=== PATIENT | male | born 1960 | race Caucasian/White ===

== ENCOUNTER 2023-09-21 14:55 | Inpatient (IN) | payer BC, OTHER ==
--- NOTE | 2023-09-21 15:31 | ED ---
General Adult HPI - General Chief complaint: Chest Pain Stated complaint: chest pain Time Seen by Provider: 09/21/23 15:07 Source: patient, EMS, RN notes reviewed, old records reviewed Mode of arrival: EMS Limitations: no limitations - History of Present Illness Initial comments: 63-year-old male with history of CAD presents for evaluation of central chest pain. Patient states he has been dealing with indigestion and reflux for the past several weeks. This has been treated with [id number] medication. He states that the day the pain was significantly worse although similar in character. No radiation. No associated vomiting or diaphoresis. Patient states his previous PA was approximately 12 years ago. - Related Data Home Medications Medication Instructions Recorded Confirmed Atorvastatin Calcium [Lipitor] 40 mg PO DAILY 03/25/14 04/10/14 Losartan/Hydrochlorothiazide 1 each PO DAILY 03/25/14 04/10/14 [Hyzaar 100-25 Tablet] Prevacid(Dose Unknown) 1 tab PO DAILY 03/25/14 04/10/14 Aspirin 325 mg PO DAILY 03/26/14 04/10/14 Previous Rx's Medication Instructions Recorded Hydrocodone/Acetaminophen [[place] 1 each PO Q6H PRN #20 tab 04/10/14 10-325] Allergies Allergy/AdvReac Type Severity Reaction Status Date / Time No Known Allergies Allergy Verified 04/10/14 18:14 Review of Systems ROS Statement: Those systems with pertinent positive or pertinent negative responses have been documented in the HPI. ROS Other: All systems not noted in ROS Statement are negative. Past Medical History Past Medical History: GERD/Reflux, Hyperlipidemia, Hypertension, Myocardial Infarction ([place]) Last Myocardial Infarction Date:: 2011 History of Any Multi-Drug Resistant Organisms: None Reported Past Surgical History: Heart Catheterization With Stent, Orthopedic Surgery Additional Past Surgical History / Comment(s): oral surgery, arthroscopic rt knee Past Anesthesia/Blood Transfusion Reactions: No Reported Reaction Date of Last Stent Placement:: 2011 Past Psychological History: No Psychological Hx Reported Smoking Status: Current every day smoker Past Alcohol Use History: Occasional Past Drug Use History: None Reported - Past Family History Sister(s) Family Medical History: Cancer General Exam Limitations: no limitations General appearance: alert, in no apparent distress Head exam: Present: atraumatic, normocephalic Eye exam: Present: normal appearance, PERRL ENT exam: Present: normal exam Neck exam: Present: normal inspection. Absent: tenderness, meningismus Respiratory exam: Present: normal lung sounds bilaterally. Absent: respiratory distress, wheezes Cardiovascular Exam: Present: regular rate, normal rhythm GI/Abdominal exam: Present: soft. Absent: distended, tenderness, guarding Extremities exam: Present: normal inspection, normal capillary refill Neurological exam: Present: alert, oriented X3 Psychiatric exam: Present: normal affect, normal mood Skin exam: Present: warm, dry, intact. Absent: cyanosis, diaphoretic Course Vital Signs 09/21/23 15:14 Temperature 97.8 F Pulse Rate 73 Respiratory 20 Rate Blood Pressure 143/94 O2 Sat by Pulse 100 Oximetry Medical Decision Making - Medical Decision Making Was pt. sent in by a medical professional or institution (, PA, ROAD MACHINERY INSPECTOR, urgent care, hospital, or snf...) When possible be specific @ -[No] Did you speak to anyone other than the patient for history (EMS, parent, family, police, friend...)? What history was obtained from this source @ -[No] Did you review nursing and triage notes (agree or disagree)? Why? @ -[I reviewed and agree with nursing and triage notes] Were old charts reviewed (outside hosp., previous admission, EMS record, old EKG, old radiological studies, urgent care reports/EKG's, snf records)? Report findings @ -[No old charts were reviewed] Differential Diagnosis (chest pain, altered mental status, abdominal pain women, abdominal pain men, vaginal bleeding, weakness, fever, dyspnea, syncope, headache, dizziness, GI bleed, back pain, seizure, CVA, palpatations, mental health, musculoskeletal)? @ -Differential Chest Pain: Stable Angina, Unstable Angina, STEMI, NSTEMI Aortic Dissection, Pneumothorax, Musculoskeletal, Esophageal Spasm GERD, Cholecystitis, Pancreatitis, Zoster, this is not meant to be an all-inclusive list. EKG interpreted by me (3pts min.). @ -Sinus rhythm, rate of 72, MI interval 184, QRS duration 113, QTc 422, diffuse ST segment elevation across the inferior and precordial leads. No ST segment elevation. No old for comparison. X-rays interpreted by me (1pt min.). @ -[Chest x-ray negative for acute cardiopulmonary findings CT interpreted by me (1pt min.). @ -[None done] U/S interpreted by me (1pt. min.). @ -[None done] What testing was considered but not performed or refused? (CT, X-rays, U/S, labs)? Why? @ -[None] What meds were considered but not given or refused? Why? @ -[None] Did you discuss the management of the patient with other professionals (professionals i.e. Dr., PA, ROAD MACHINERY INSPECTOR, lab, RT, psych nurse, social security specialist, peoplesoft administrator, teacher, security police officer, skilled nursing case manager)? Give summary @ -[Patient discussed with Dr. Garvin who will admit and Dr. Hopkins covering for cardiology, Dr. Hopkins does recommend posterior EKG, this will be obtained and followed by Dr. Garvin. Was smoking cessation discussed for >3mins.? @ -[No] Was critical care preformed (if so, how long)? @ -[No] Were there social determinants of health that impacted care today? How? (Homelessness, low income, unemployed, alcoholism, drug addiction, transportation, low edu. Level, literacy, decrease access to med. care, long term, rehab)? @ -[No] Was there de-escalation of care discussed even if they declined (Discuss DNR or withdrawal of care, Hospice)? DNR status @ -[No] What co-morbidities impacted this encounter? (DM, HTN, Smoking, COPD, CAD, Cancer, CVA, ARF, Chemo, Hep., AIDS, mental health diagnosis, sleep apnea, morbid obesity)? @ -Coronary artery disease Was patient admitted / discharged? Hospital course, mention meds given and route, prescriptions, significant lab abnormalities, going to OR and other pertinent info. @63-year-old male history of coronary artery disease presenting with atypical chest pain without typical features. EKG is ischemic appearing with ST segment depression inferiorly and laterally. No ST segment elevation. No old EKG for comparison. Workup is initiated, normal CBC, CMP does show a hypokalemia of 2.7 which is replaced. Initial troponin is negative. Serial cardiac enzymes will be obtained. Posterior EKG pending at this time. Patient admitted to internal medicine with cardiology on consult. Undiagnosed new problem with uncertain prognosis? @ -[No] Drug Therapy requiring intensive monitoring for toxicity (Heparin, Nitro, Insulin, Cardizem)? @ -[No] Were any procedures done? @ -[No] Diagnosis/symptom? @ -Chest pain rule out Acute, or Chronic, or Acute on Chronic? @ -Acute Uncomplicated (without systemic symptoms) or Complicated (systemic symptoms)? @ -[default] Side effects of treatment? @ -[No] Exacerbation, Progression, or Severe Exacerbation? @ -[No] Poses a threat to life or bodily function? How? (Chest pain, [place], PA, pneumonia, PE, COPD, DKA, ARF, appy, cholecystitis, CVA, Diverticulitis, Homicidal, Suicidal, threat to staff... and all critical care pts) @ -Yes, ACS - Lab Data Result diagrams: 09/21/23 15:30 09/21/23 15:30 Lab Results 09/21/23 09/21/23 09/21/23 Range/Units 15:30 15:30 15:30 WBC 12.0 H (3.8-10.6) k/uL RBC 5.71 (4.30-5.90) m/uL Hgb 15.9 (13.0-17.5) gm/dL Hct 46.1 (39.0-53.0) % MCV 80.7 (80.0-100.0) fL MCH 27.9 (25.0-35.0) pg MCHC 34.5 (31.0-37.0) g/dL RDW 12.7 (11.5-15.5) % Plt Count 244 (150-450) k/uL MPV 9.1 Neutrophils % 72 % Lymphocytes % 19 % Monocytes % 5 % Eosinophils % 2 % Basophils % 1 % Neutrophils # 8.7 H (1.3-7.7) k/uL Lymphocytes # 2.2 (1.0-4.8) k/uL Monocytes # 0.6 (0-1.0) k/uL Eosinophils # 0.2 (0-0.7) k/uL Basophils # 0.1 (0-0.2) k/uL PT 11.0 (10.0-12.5) sec INR 1.0 (<1.2) APTT 24.3 (22.0-30.0) sec Sodium 138 (137-145) mmol/L Potassium 2.7 L* (3.5-5.1) mmol/L Chloride 99 (98-107) mmol/L Carbon Dioxide 29 (22-30) mmol/L Anion Gap 10 mmol/L BUN 14 (9-20) mg/dL Creatinine 0.82 (0.66-1.25) mg/dL Est GFR (CKD-EPI)AfAm >90 (>60 ml/min/1.73 sqM) Est GFR (CKD-EPI)NonAf >90 (>60 ml/min/1.73 sqM) Glucose 123 H (74-99) mg/dL Calcium 9.7 (8.4-10.2) mg/dL Magnesium 1.8 (1.6-2.3) mg/dL Total Bilirubin 1.0 (0.2-1.3) mg/dL AST 46 (17-59) U/L ALT 45 (4-49) U/L Alkaline Phosphatase 95 (38-126) U/L Troponin I (0.000-0.034) ng/mL Total Protein 7.4 (6.3-8.2) g/dL Albumin 4.4 (3.5-5.0) g/dL Lipase 119 (23-300) U/L 09/21/23 Range/Units 15:30 WBC (3.8-10.6) k/uL RBC (4.30-5.90) m/uL Hgb (13.0-17.5) gm/dL Hct (39.0-53.0) % MCV (80.0-100.0) fL MCH (25.0-35.0) pg MCHC (31.0-37.0) g/dL RDW (11.5-15.5) % Plt Count (150-450) k/uL MPV Neutrophils % % Lymphocytes % % Monocytes % % Eosinophils % % Basophils % % Neutrophils # (1.3-7.7) k/uL Lymphocytes # (1.0-4.8) k/uL Monocytes # (0-1.0) k/uL Eosinophils # (0-0.7) k/uL Basophils # (0-0.2) k/uL PT (10.0-12.5) sec INR (<1.2) APTT (22.0-30.0) sec Sodium (137-145) mmol/L Potassium (3.5-5.1) mmol/L Chloride (98-107) mmol/L Carbon Dioxide (22-30) mmol/L Anion Gap mmol/L BUN (9-20) mg/dL Creatinine (0.66-1.25) mg/dL Est GFR (CKD-EPI)AfAm (>60 ml/min/1.73 sqM) Est GFR (CKD-EPI)NonAf (>60 ml/min/1.73 sqM) Glucose (74-99) mg/dL Calcium (8.4-10.2) mg/dL Magnesium (1.6-2.3) mg/dL Total Bilirubin (0.2-1.3) mg/dL AST (17-59) U/L ALT (4-49) U/L Alkaline Phosphatase (38-126) U/L Troponin I 0.013 (0.000-0.034) ng/mL Total Protein (6.3-8.2) g/dL Albumin (3.5-5.0) g/dL Lipase (23-300) U/L Disposition Clinical Impression: Chest pain, Hypokalemia Disposition: ADMITTED IP TO THIS HOSP Condition: Stable Is patient prescribed a controlled substance at d/c from ED?: No Referrals: Gifty Nelson DO [Primary Care Provider] - 1-2 days Time of Disposition: 17:10
[2023-09-21 15:40] LABS: Basophils # (A) 0.1 k/uL (0-0.2); Basophils % (A) 1 %; Eosinophils # (A) 0.2 k/uL (0-0.7); Eosinophils % (A) 2 %; HCT 46.1 % (39.0-53.0); HGB 15.9 gm/dL (13.0-17.5); Lymphocytes # (A) 2.2 k/uL (1.0-4.8); Lymphocytes % (A) 19 %; MCH 27.9 pg (25.0-35.0); MCHC 34.5 g/dL (31.0-37.0); MCV 80.7 fL (80.0-100.0); Mean Platelet Volume 9.1; Monocytes # (A) 0.6 k/uL (0-1.0); Monocytes % (A) 5 %; Neutrophils # (A) 8.7 k/uL (1.3-7.7); Neutrophils % (A) 72 %; Platelet Count 244 k/uL (150-450); RBC 5.71 m/uL (4.30-5.90); RDW 12.7 % (11.5-15.5)
[2023-09-21 15:50] LABS: Partial Thromboplastin Time 24.3 sec (22.0-30.0)
[2023-09-21] MEDS: PANTOPRAZOLE 40 MG/10 ML VIAL IVP STA (15:55)
[2023-09-21] MEDS: ASPIRIN 325 MG TAB PO STA (15:55)
--- NOTE | 2023-09-21 16:11 | XR ---
EXAMINATION TYPE: XR chest 1V portable DATE OF EXAM: 09/21/2023 COMPARISON: NONE HISTORY: Chest pain TECHNIQUE: Single frontal view of the chest is obtained. FINDINGS: There is no focal air space opacity, pleural effusion, or pneumothorax seen. The cardiac silhouette size is within normal limits. The osseous structures are intact. Elevated left hemidiaph ragm. Mild hyperexpansion consider COPD. Portions of the upper lobe medial segments are obscured by p ositioning. IMPRESSION: No acute process.
[2023-09-21 16:30] LABS: ALT 45 U/L (4-49); AST 46 U/L (17-59); African American GFR (CKD) >90 (>60 ml/min/1.73 sqM); Albumin 4.4 g/dL (3.5-5.0); Alkaline Phosphatase 95 U/L (38-126); Anion Gap 10 mmol/L; Blood Urea Nitrogen 14 mg/dL (9-20); Calcium 9.7 mg/dL (8.4-10.2); Carbon Dioxide 29 mmol/L (22-30); Chloride 99 mmol/L (98-107); Glucose 123 mg/dL (74-99); Lipase 119 U/L (23-300); Magnesium 1.8 mg/dL (1.6-2.3); Non-African American GFR(CKD) >90 (>60 ml/min/1.73 sqM); Sodium 138 mmol/L (137-145); Total Protein 7.4 g/dL (6.3-8.2)
[2023-09-21 16:33] LABS: Potassium 2.7 mmol/L (3.5-5.1)
[2023-09-21] MEDS ORDERED: NALOXONE 0.4 MG/ML 1 ML VIAL IV PRN (16:56)
[2023-09-21] MEDS: POTASSIUM CHLORIDE ER 20 MEQ TAB.ER PO STA (17:17)
[2023-09-21] MEDS: POTASSIUM CHLORIDE 10 MEQ in WATER FOR INJECTION 1 100ML.BAG IVPB SCH (17:24)
[2023-09-21] MEDS: MORPHINE SULFATE 4 MG/ML SYRINGE IV PRN (17:53)
[2023-09-21] MEDS ORDERED: NITROGLYCERIN SL TABS 0.4 MG TAB SUBLINGUAL PRN (18:11)
[2023-09-21] MEDS ORDERED: NALOXONE 0.4 MG/ML 1 ML VIAL IVP PRN (18:11)
--- NOTE | 2023-09-21 18:20 | P.HPIM ---
History of Present Illness H&P Date: 09/21/23 Chief Complaint: chest pain 63-year-old man with a medical history of CAD status post multiple drug-eluting stents back in 2011, hypertension, active smoker, presented for evaluation of burning chest pain. Patient says that the pain is burning in nature and has been present for months, but has been gradually worsening over the course of the last several weeks. He has seen his primary care physician for this and has been prescribed Prevacid, which did not seem to improve his symptoms. He had scheduled to see a GI physician for EGD on Saturday of next week, however, noted that his symptoms got to the point where he became concerned there may be an issue with his heart given his history and presented to the emergency room for further evaluation. Patient also relates to me that he had an episode of the flu 3 weeks prior, however, his symptoms of burning chest pain had started before this. He relates to me that his pain does improve when he leans forward or sits up, and is worse when he lies down onto his back, takes his medication, drinks water. He denies fevers, chills, nausea, vomiting, diaphoresis, palpitations, syncope, presyncope, abdominal pain, constipation, diarrhea. In the emergency room, patient was afebrile, 143/94, heart rate 73, 100% on room air. CBC demonstrated mild leukocytosis 12. Basic metabolic panel showed potassium of 2.7. Liver function tests are unremarkable. Lipase was 119. Troponins 0.013 then trended 0.032 after repeat check. Coags are unremarkable. Patient had multiple EKGs, personally interpreted, normal sinus rhythm, normal axis, ST depressions in leads II, 3, aVF, V3 through V6, ST elevation in aVR. Patient subsequently underwent posterior EKG which did not demonstrate findings of ST elevation. Chest x-ray, personally interpreted, showed clear parenchyma bilaterally, normal-sized heart. All Systems reviewed and pertinent positives and negatives noted in HPI, all other symptoms are negative Gen: in no apparent distress, resting comfortably in bed Eyes: PERRL, no scleral injection or icterus HENT: normocephalic, atraumatic, good hearing acuity, moist mucous membranes Neck: no tracheal deviation, full range of motion Resp: good air exchange, breathing comfortably with no accessory muscle use, no tactile fremitus, clear to auscultation bilaterally CVS: good distal perfusion x 4, no pitting edema, systolic ejection murmur heard best over the aortic space, no pericardial friction rub GI: soft, NTTP, ND, no hepatosplenomegaly : no suprapubic tenderness, no CVAT, west catheter not present MSK: no clubbing, no cyanosis, no noted contractures of extremities Skin: no noted rashes, petechiae; temperature of skin is appropriate Neuro: moving all extremities without signs of weakness, CN II-XII intact Psych: cooperative, euthymic mood, insight and judgment intact Labs and imaging as above Assessment/plan: Chest pain, atypical Hypertension CAD -Patient is high risk given his history, admit to observation with telemetry -Cardiology was consulted -EKGs reviewed and personally interpreted, see reading above -Chest x-ray was reviewed and personally interpreted, see reading above -Aspirin, statin -TSH, lipid panel, A1c -GI cocktail, Pepcid twice daily, Tums every 4 as needed -N.p.o. at midnight -Trend troponins Active smoker -Nicotine patch Patient is full code Past Medical History Past Medical History: GERD/Reflux, Hyperlipidemia, Hypertension, Myocardial Infarction ([place]) Last Myocardial Infarction Date:: 2011 History of Any Multi-Drug Resistant Organisms: None Reported Past Surgical History: Heart Catheterization With Stent, Orthopedic Surgery Additional Past Surgical History / Comment(s): oral surgery, arthroscopic rt knee Past Anesthesia/Blood Transfusion Reactions: No Reported Reaction Date of Last Stent Placement:: 2011 Past Psychological History: No Psychological Hx Reported Smoking Status: Current every day smoker Past Alcohol Use History: Occasional Past Drug Use History: None Reported - Past Family History Sister(s) Family Medical History: Cancer Medications and Allergies Home Medications Medication Instructions Recorded Confirmed Type Atorvastatin Calcium [Lipitor] 40 mg PO DAILY 03/25/14 04/10/14 History Losartan/Hydrochlorothiazide 1 each PO DAILY 03/25/14 04/10/14 History [Hyzaar 100-25 Tablet] Prevacid(Dose Unknown) 1 tab PO DAILY 03/25/14 04/10/14 History Aspirin 325 mg PO DAILY 03/26/14 04/10/14 History Hydrocodone/Acetaminophen [[place] 1 each PO Q6H PRN #20 tab 04/10/14 Rx 10-325] Allergies Allergy/AdvReac Type Severity Reaction Status Date / Time No Known Allergies Allergy Verified 04/10/14 18:14 Physical Exam Osteopathic Statement: *. No significant issues noted on an osteopathic structural exam other than those noted in the History and Physical/Consult. Vitals: Vital Signs Temp Pulse Resp BP Pulse Ox 09/21/23 17:40 70 18 147/91 98 09/21/23 15:14 97.8 F 73 20 143/94 100 Intake and Output 09/21/23 09/21/23 09/21/23 06:59 14:59 22:59 Other: Weight 102.058 kg Results CBC & Chem 7: 09/21/23 15:30 09/21/23 15:30 Labs: Abnormal Lab Results - Last 24 Hours (Table) 09/21/23 09/21/23 Range/Units 15:30 15:30 WBC 12.0 H (3.8-10.6) k/uL Neutrophils # 8.7 H (1.3-7.7) k/uL Potassium 2.7 L* (3.5-5.1) mmol/L Glucose 123 H (74-99) mg/dL
[2023-09-21] MEDS: MAG HYDROX/AL HYDROX/SIMETH 30 ML, HYOSCYAMINE ELIXIR 10 ML PO ONE (18:33)
[2023-09-21] MEDS: FAMOTIDINE 20 MG TAB PO SCH (21:13)
[2023-09-21 21:14] LABS: African American GFR (CKD) >90 (>60 ml/min/1.73 sqM); Anion Gap 7 mmol/L; Blood Urea Nitrogen 13 mg/dL (9-20); Calcium 9.2 mg/dL (8.4-10.2); Carbon Dioxide 32 mmol/L (22-30); Chloride 99 mmol/L (98-107); Glucose 111 mg/dL (74-99); Non-African American GFR(CKD) >90 (>60 ml/min/1.73 sqM); Sodium 138 mmol/L (137-145)
[2023-09-21] MEDS: NICOTINE 14MG/24HR PATCH TRANSDERM SCH ×2 (21:14→22:35)
[2023-09-21 21:24] LABS: Potassium 2.7 mmol/L (3.5-5.1)
[2023-09-21] MEDS: CALCIUM CARBONATE 500 MG CHEWABLE PO PRN (22:25)
[2023-09-21] MEDS: amLODIPine 10 MG TAB PO SCH (22:56)
[2023-09-22] MEDS: ATORVASTATIN 80 MG TAB PO SCH (07:39)
[2023-09-22] MEDS: ASPIRIN 81 MG PO SCH (07:39)
[2023-09-22 08:23] LABS: Basophils # (A) 0.1 k/uL (0-0.2); Basophils % (A) 1 %; Eosinophils # (A) 0.2 k/uL (0-0.7); Eosinophils % (A) 2 %; HCT 44.9 % (39.0-53.0); HGB 15.2 gm/dL (13.0-17.5); Lymphocytes # (A) 2.7 k/uL (1.0-4.8); Lymphocytes % (A) 25 %; MCH 27.8 pg (25.0-35.0); MCHC 33.9 g/dL (31.0-37.0); Mean Platelet Volume 11.6; Monocytes # (A) 0.9 k/uL (0-1.0); Monocytes % (A) 9 %; Neutrophils # (A) 6.5 k/uL (1.3-7.7); Neutrophils % (A) 61 %; Platelet Count 169 k/uL (150-450); RBC 5.47 m/uL (4.30-5.90); RDW 13.2 % (11.5-15.5); WBC 10.5 k/uL (3.8-10.6)
[2023-09-22 08:30] LABS: African American GFR (CKD) >90 (>60 ml/min/1.73 sqM); Anion Gap 9 mmol/L; Blood Urea Nitrogen 12 mg/dL (9-20); Calcium 9.4 mg/dL (8.4-10.2); Carbon Dioxide 28 mmol/L (22-30); Chloride 103 mmol/L (98-107); Glucose 102 mg/dL (74-99); Magnesium 1.8 mg/dL (1.6-2.3); Non-African American GFR(CKD) >90 (>60 ml/min/1.73 sqM); Potassium 2.8 mmol/L (3.5-5.1); Sodium 140 mmol/L (137-145)
[2023-09-22] MEDS: POTASSIUM CHLORIDE ER 20 MEQ TAB.ER PO SCH (08:56)
[2023-09-22] MEDS: ONDANSETRON 4 MG/2 ML VIAL IVP PRN (09:51)
[2023-09-22 10:22] LABS: Large Platelets Present; RBC Morphology Normal
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
[2023-09-22] MEDS: SPIRONOLACTONE 25 MG TAB PO SCH (12:07)
[2023-09-22 12:18] VITALS: RESP 16
[2023-09-22 13:15] LABS: Chol/HDL Ratio 3.91 Ratio; LDL Cholesterol,Calculated 34.1 mg/dL (0.0-131.0)
--- NOTE | 2023-09-22 14:24 | P.PN ---
Subjective Progress Note Date: 09/22/23 No new complaints today. GI cocktail did help his pain. Trops negative. Gen: in no apparent distress, resting comfortably in bed Eyes: PERRL, no scleral injection or icterus HENT: normocephalic, atraumatic, good hearing acuity, moist mucous membranes Neck: no tracheal deviation, full range of motion Resp: good air exchange, breathing comfortably with no accessory muscle use, no tactile fremitus, clear to auscultation bilaterally CVS: good distal perfusion x 4, no pitting edema, systolic ejection murmur heard best over the aortic space, no pericardial friction rub GI: soft, NTTP, ND, no hepatosplenomegaly : no suprapubic tenderness, no CVAT, west catheter not present MSK: no clubbing, no cyanosis, no noted contractures of extremities Skin: no noted rashes, petechiae; temperature of skin is appropriate Neuro: moving all extremities without signs of weakness, CN II-XII intact Psych: cooperative, euthymic mood, insight and judgment intact Hospital Course: 63-year-old man with a medical history of CAD status post multiple drug-eluting stents back in 2011, hypertension, active smoker, presented for evaluation of burning chest pain. In the emergency room, patient was afebrile, 143/94, heart rate 73, 100% on room air. CBC demonstrated mild leukocytosis 12. Basic metabolic panel showed potassium of 2.7. Liver function tests are unremarkable. Lipase was 119. Troponins 0.013 then trended 0.032 after repeat check. Coags are unremarkable. Patient had multiple EKGs, personally interpreted, normal sinus rhythm, normal axis, ST depressions in leads II, 3, aVF, V3 through V6, ST elevation in aVR. Patient subsequently underwent posterior EKG which did not demonstrate findings of ST elevation. Chest x-ray, personally interpreted, showed clear parenchyma bilaterally, normal-sized heart. Assessment/plan: Chest pain, atypical Hypertension CAD -Patient is high risk given his history, admit to observation with telemetry -Cardiology was consulted -EKGs reviewed and personally interpreted, see reading above -Chest x-ray was reviewed and personally interpreted, see reading above -Aspirin, statin -TSH, lipid panel, A1c -GI cocktail, Pepcid twice daily, Tums every 4 as needed -N.p.o. at midnight tonight for stress test tomorrow per cardiology -Trend troponins Echo ordered Hypokalemia -replete -repeat BMP Active smoker -Nicotine patch Patient is full code Objective - Vital Signs Vital signs: Vital Signs Temp 97.8 F 09/22/23 08:00 Pulse 71 09/22/23 11:53 Resp 16 09/22/23 11:53 BP 151/88 09/22/23 11:53 Pulse Ox 98 09/22/23 11:53 FiO2 Intake & Output 09/21/23 09/22/23 09/22/23 18:59 06:59 18:59 Intake Total 780 Balance 780 Weight 102.058 kg 102.058 kg Intake: Oral 780 Other: Voiding Method Toilet Toilet # Voids 1 - Labs CBC & Chem 7: 09/22/23 07:32 09/22/23 07:32 Labs: Abnormal Lab Results - Last 24 Hours (Table) 09/21/23 09/21/23 09/21/23 Range/Units 15:30 15:30 20:11 WBC 12.0 H (3.8-10.6) k/uL Neutrophils # 8.7 H (1.3-7.7) k/uL Potassium 2.7 L* 2.7 L* (3.5-5.1) mmol/L Carbon Dioxide 32 H (22-30) mmol/L Glucose 123 H 111 H (74-99) mg/dL Hemoglobin A1c (<=6.0) % Triglycerides (0.00-149.00) mg/dL HDL Cholesterol (40.00-60.00) mg/dL 09/22/23 09/22/23 09/22/23 Range/Units 07:32 07:32 07:32 WBC (3.8-10.6) k/uL Neutrophils # (1.3-7.7) k/uL Potassium 2.8 L (3.5-5.1) mmol/L Carbon Dioxide (22-30) mmol/L Glucose 102 H (74-99) mg/dL Hemoglobin A1c 6.3 H (<=6.0) % Triglycerides 183.00 H (0.00-149.00) mg/dL HDL Cholesterol 24.30 L (40.00-60.00) mg/dL
--- NOTE | 2023-09-22 14:59 | CA ---
Transthoracic Echo Report Name: Julien Moreno Age: 63 Gender: M : 1960 Exam Date: 09/22/2023 11:32 Exam Location: [facility] Ht (in): 71 Wt (lb): 225 Ordering Physician: Jl Garvin MD Attending/Referring Phys: Alumni Coordinator Jesus Bolden RDCS Procedure CPT: Indications: Chest Pain Cardiac Hx: Technical Quality: Technically difficult study Contrast 1: Definity Total Dose (mL): 3 Contrast 2: Total Dose (mL): MEASUREMENTS (Male / Female) Normal Values DOPPLER AV Peak Velocity 359.4 cm/s AV Peak Gradient 51.7 mmHg AV Mean Velocity 249.9 cm/s AV Mean Gradient 27.8 mmHg AV Velocity Time Integral 69.2 cm AI Peak Velocity 275.7 cm/s AI Peak Gradient 30.4 mmHg AI Pressure Half Time 412.6 ms LVOT Peak Velocity 105.0 cm/s LVOT Peak Gradient 4.4 mmHg LVOT Velocity Time Integral 22.9 cm Mitral E Point Velocity 69.4 cm/s Mitral A Point Velocity 98.4 cm/s Mitral E to A Ratio 0.7 MV Deceleration Time 300.2 ms MV E' Velocity 8.2 cm/s Mitral E to MV E' Ratio 8.4 FINDINGS Left Ventricle Left ventricular ejection fraction is estimated at 60-65 %. Mild concentric left ventricular hypertrophy. No obvious regional wall motion abnormalities. Right Ventricle Normal right ventricular size. Right Atrium Normal right atrial size. Left Atrium Left atrium not well visualized. Mitral Valve No mitral regurgitation. Aortic Valve Trace aortic regurgitation. Moderate aortic stenosis with a peak gradient of 52.75 mmHg and a mean gradient of 27.88 mmHg. Tricuspid Valve Trace tricuspid regurgitation. Pulmonic Valve Pulmonic valve not well visualized. Pericardium No pericardial effusion. Aorta Aortic root and proximal ascending aorta not well visualized. CONCLUSIONS Technically difficult study Left ventricular ejection fraction 60-65% Mild increased left ventricular wall thickness Moderate aortic stenosis Previewed by: Dr. Jean Hopkins DO (Electronically Signed) Final Date: 22 September 2023 14:58
[2023-09-22 17:38] LABS: African American GFR (CKD) >90 (>60 ml/min/1.73 sqM); Anion Gap 7 mmol/L; Blood Urea Nitrogen 13 mg/dL (9-20); Calcium 9.6 mg/dL (8.4-10.2); Carbon Dioxide 33 mmol/L (22-30); Chloride 99 mmol/L (98-107); Glucose 101 mg/dL (74-99); Non-African American GFR(CKD) >90 (>60 ml/min/1.73 sqM); Potassium 3.2 mmol/L (3.5-5.1); Sodium 139 mmol/L (137-145)
[2023-09-22] MEDS: POTASSIUM CHLORIDE ER 20 MEQ TAB.ER PO STA (18:22)
[2023-09-22] MEDS: MAG HYDROX/AL HYDROX/SIMETH 30 ML, HYOSCYAMINE ELIXIR 10 ML PO ONE (18:28)
[2023-09-23] MEDS: ACETAMINOPHEN TAB 325 MG TAB PO PRN (03:52)
--- NOTE | 2023-09-23 10:23 | P.DS ---
Providers Date of admission: 09/21/23 16:56 Expected date of discharge: 09/23/23 Attending physician: Jl Garvin MD Consults: 09/21/23 16:56 Consult Physician Routine Consulting Provider: Jean Hopkins Consult Reason/Comments: Chest pain rule out Do you want consulting provider notified?: Already Contacted Primary care physician: Gifty Nelson Hospital Course: Chest pain, atypical Hypertension CAD Hypokalemia Active smoker Gen: in no apparent distress, resting comfortably in bed Eyes: PERRL, no scleral injection or icterus HENT: normocephalic, atraumatic, good hearing acuity, moist mucous membranes Neck: no tracheal deviation, full range of motion Resp: good air exchange, breathing comfortably with no accessory muscle use, no tactile fremitus, clear to auscultation bilaterally CVS: good distal perfusion x 4, no pitting edema, systolic ejection murmur heard best over the aortic space, no pericardial friction rub GI: soft, NTTP, ND, no hepatosplenomegaly : no suprapubic tenderness, no CVAT, west catheter not present MSK: no clubbing, no cyanosis, no noted contractures of extremities Skin: no noted rashes, petechiae; temperature of skin is appropriate Neuro: moving all extremities without signs of weakness, CN II-XII intact Psych: cooperative, euthymic mood, insight and judgment intact Hospital Course: 63-year-old man with a medical history of CAD status post multiple drug-eluting stents back in 2011, hypertension, active smoker, presented for evaluation of burning chest pain. In the emergency room, patient was afebrile, 143/94, heart rate 73, 100% on room air. CBC demonstrated mild leukocytosis 12. Basic metabolic panel showed potassium of 2.7. Liver function tests are unremarkable. Lipase was 119. Troponins 0.013 then trended 0.032 after repeat check. Coags are unremarkable. Patient had multiple EKGs, personally interpreted, normal sinus rhythm, normal axis, ST depressions in leads II, 3, aVF, V3 through V6, ST elevation in aVR. Patient subsequently underwent posterior EKG which did not demonstrate findings of ST elevation. Chest x-ray, personally interpreted, showed clear parenchyma bilaterally, normal-sized heart. Pt was admitted to observation and cardiology consulted. Troponins were negative. No events on telemetry. Echo showed good EF 55-60%, no WMA, moderate , mild LVH. K was repleted. Pt was offered stress test, but opted to pursue stress testing as outpatient with his turbine attendant. He relayed his plans for evaluation with Dr. Lainey Mcdonnell on Saturday for endoscopy for dyspepsia. Discharged on famotidine, resumption of lansoprazole. Also had HCTZ switched to spironolactone, losartan remained at 100mg daily. He should also f/u with his PCP. I spent 35 minutes coordinating this discharge on 09/22 Patient Condition at Discharge: Good Plan - Discharge Summary New Discharge Prescriptions: New Losartan Potassium 100 mg PO DAILY #30 tab Nitroglycerin Sl Tabs [Nitrostat] 0.4 mg SUBLINGUAL Q5M PRN #15 tab PRN Reason: Chest Pain Spironolactone [Aldactone] 25 mg PO DAILY #30 tab Famotidine [Pepcid] 20 mg PO DAILY #30 tab Continue Atorvastatin Calcium [Lipitor] 40 mg PO DAILY Metoprolol Tartrate [Lopressor] 50 mg PO DAILY Lansoprazole 15 mg PO DAILY Aspirin EC [Ecotrin Low Dose] 81 mg PO DAILY amLODIPine [Norvasc] 10 mg PO HS Bismuth Subsalicylate [Pepto-Bismol] 524 mg PO Q30M PRN PRN Reason: Gi Upset Calcium Carbonate [Tums] 500 mg PO ACHS PRN PRN Reason: Gi Upset ALPRAZolam [Xanax] 0.25 mg PO DAILY PRN PRN Reason: Anxiety Clenpiq 1 bottle PO DIRECTED PRN PRN Reason: night before colonoscopy Discontinued Losartan/Hydrochlorothiazide [Hyzaar 100-25 Tablet] 1 tab PO DAILY Discharge Medication List Atorvastatin Calcium [Lipitor] 40 mg PO DAILY 03/25/14 [History] ALPRAZolam [Xanax] 0.25 mg PO DAILY PRN 09/21/23 [History] Aspirin EC [Ecotrin Low Dose] 81 mg PO DAILY 09/21/23 [History] Bismuth Subsalicylate [Pepto-Bismol] 524 mg PO Q30M PRN 09/21/23 [History] Calcium Carbonate [Tums] 500 mg PO ACHS PRN 09/21/23 [History] Clenpiq 1 bottle PO DIRECTED PRN 09/21/23 [History] Lansoprazole 15 mg PO DAILY 09/21/23 [History] Metoprolol Tartrate [Lopressor] 50 mg PO DAILY 09/21/23 [History] amLODIPine [Norvasc] 10 mg PO HS 09/21/23 [History] Famotidine [Pepcid] 20 mg PO DAILY #30 tab 09/23/23 [Rx] Losartan Potassium 100 mg PO DAILY #30 tab 09/23/23 [Rx] Nitroglycerin Sl Tabs [Nitrostat] 0.4 mg SUBLINGUAL Q5M PRN #15 tab 09/23/23 [Rx] Spironolactone [Aldactone] 25 mg PO DAILY #30 tab 09/23/23 [Rx] Follow up Appointment(s)/Referral(s): Gifty Nelson DO [Primary Care Provider] - 1-2 days Discharge Disposition: HOME SELF-CARE
[2023-09-23] MEDS: LOSARTAN 50 MG TAB PO SCH (10:38)
[2023-09-23 10:46] LABS: African American GFR (CKD) >90 (>60 ml/min/1.73 sqM); Anion Gap 11 mmol/L; Blood Urea Nitrogen 12 mg/dL (9-20); Carbon Dioxide 24 mmol/L (22-30); Chloride 103 mmol/L (98-107); Glucose 106 mg/dL (74-99); Magnesium 1.9 mg/dL (1.6-2.3); Non-African American GFR(CKD) >90 (>60 ml/min/1.73 sqM); Potassium 3.2 mmol/L (3.5-5.1); Sodium 138 mmol/L (137-145)
[2023-09-23 10:57] VITALS: BP 146/88; PULSE 88; TEMP 97.6
[2023-09-23] MEDS: hydroCHLOROthiazide 12.5 MG CAP PO SCH (12:45)
--- NOTE | 2023-09-23 23:28 | PN ---
PROGRESS NOTE SUBJECTIVE: This gentleman is feeling well. His blood pressure is slightly elevated. He plans to go home and have a stress test as outpatient. Blood pressure slightly elevated. I am adding hydrochlorothiazide 12.5 mg daily with a banana to be eaten or a handful of salt free almonds. OBJECTIVE: CARDIAC: S1, S2 heard normally. LUNGS: Clear. ABDOMEN: Unchanged. LOWER EXTREMITIES: Unchanged. MMODL / IJN: [id number] /
== END 2023-09-23 12:45 | disposition home or self-care (01) | DRG 313 ==
LOC: EC 14:55 → 3SCARD 16:56
PROVIDERS: ADMIT Internal Medicine; ATTEND Internal Medicine
DX: R07.89 Other chest pain (principal); I10 Essential (primary) hypertension; I25.10 Atherosclerotic heart disease of native coronary artery without angina pectoris; E78.5 Hyperlipidemia, unspecified; Z28.310 Unvaccinated for COVID-19; I25.2 Old myocardial infarction; K21.9 Gastro-esophageal reflux disease without esophagitis; E87.6 Hypokalemia; R63.4 Abnormal weight loss; F17.200 Nicotine dependence, unspecified, uncomplicated; Z71.6 Tobacco abuse counseling; Z79.82 Long term (current) use of aspirin; Z79.899 Other long term (current) drug therapy; Z95.5 Presence of coronary angioplasty implant and graft
CPT/HCPCS: 36415; 71045; 80048; 80053; 80061; 83036; 83690; 83735; 84443; 84484; 85025; 85610; 85730; 93005; 93306; 96365; 96366; 96375; 96376; 99285

== ENCOUNTER 2023-10-04 05:57 | Day surgery (SDC) | payer BC ==
[2023-10-04] MEDS ORDERED: LIDOCAINE 1% (10MG/ML) FOR IV START INTRADERMA PRN (06:37)
[2023-10-04] MEDS: LACTATED RINGERS 1,000 ML IV SCH (06:47)
[2023-10-04] MEDS ORDERED: PROPOFOL 10 MG/ML 20 ML VIAL IV ONE (07:00)
[2023-10-04 07:14] VITALS: RESP 16; TEMP 97.6
--- NOTE | 2023-10-04 07:42 | P.PCN ---
Date of Procedure: 10/04/23 Procedure(s) Performed: Brief history: Patient is a pleasant 63-year-old white malescheduled for an elective upper endoscopy as well as colonoscopy as a part of evaluation ofprogressive dysphagia to solids for the last 3 months duration associated weight loss of almost 40 pounds. he has long-standing history of GERD and has been on Protonix 40 mg twice daily with some help. He scheduled for colonoscopy as a part of screening for colorectal neoplasia Procedure performed: Esophagogastroduodenoscopy with biopsy Colonoscopybiopsy Preoperative diagnosis: Anesthesia: MAC Procedure: After informed consent was obtained from the patient was brought into the endoscopy unit and IV sedation was administered by anesthesia under continuous monitoring. Initially upper endoscopy was done. The Olympus GF 160 video endoscope was inserted inserted into the mouth and esophagus intubated without any difficulty and was gradually advanced into the stomach and duodenum and carefully examined. The bulb and second part of the duodenum appeared normal. The scope was then withdrawn into the stomach adequately insufflated with air and upon careful examination the antrum and body, cardia and fundus appeared normal. The scope was then withdrawn into the esophagus. The GE junction was located at 40 cm to the incisors.there was a distal esophageal ulcerated mass extending from 35-40 cm from the incisors with some luminal narrowing and multiple biopsies were done from this mass. The rest of esophagus appeared normal and the patient tolerated the procedure well. At this time the patient continued to remain sedation. Initial digital rectal examination was normal. Olympus CF 160 video colonoscope was then inserted into the rectum and gradually advanced to the cecum without any difficulty. Careful examination was performed as the scope was gradually being withdrawn. The prep was excellent. The cecum, ascending colon, transverse colon, descending colon,pain normal. The sigmoid: There was a 3-4 mm sessile polyp that was removed by cold biopsy. Rest sigmoid colon and rectum appeared normal. Retroflexion was performed in the rectum and no lesions were noted. Patient tolerated the procedure well. Impression: 1. Upper endoscopy revealed distal esophageal ulcerated mass extending from 35- 40 cm from the incisors with some luminal narrowing suspicious for malignancy status post multiple biopsies 2.Colonoscopy revealed 3-4 mm sigmoid polyp status post removal by cold biopsy Recommendations: Findings of this examination were discussed with the patient as well as his family. He was advised to follow with the biopsy results and follow up in office next week.
[2023-10-04 07:55] VITALS: BP 134/81; PULSE 65
== END 2023-10-04 08:16 | disposition home or self-care (01) ==
LOC: ORWHC2ENDO 05:57
PROVIDERS: ATTEND Internal Medicine Gastroenterology
DX: C15.9 Malignant neoplasm of esophagus, unspecified (principal); Z12.11 Encounter for screening for malignant neoplasm of colon; D12.5 Benign neoplasm of sigmoid colon; K21.9 Gastro-esophageal reflux disease without esophagitis; I25.10 Atherosclerotic heart disease of native coronary artery without angina pectoris; E78.5 Hyperlipidemia, unspecified; I10 Essential (primary) hypertension; F17.200 Nicotine dependence, unspecified, uncomplicated; Z79.899 Other long term (current) drug therapy; Z79.82 Long term (current) use of aspirin
CPT/HCPCS: 88305; 88342; 88341; 45380; 43239; J2704

== ENCOUNTER → 2023-10-24 | Outpatient (CLI) | payer BC ==
--- NOTE | 2023-10-25 11:46 | PE ---
EXAMINATION TYPE: PET CT fusion skull to thigh DATE OF EXAM: 10/24/2023 COMPARISON: CT 09/03/2013 Prior PET/CT: None HISTORY: Esophageal cancer TECHNIQUE: Following the intravenous administration of 9.41 mCi of F-18 FDG, whole body images are p erformed from the skull base to the midthigh. Images are reviewed on the computer in the coronal, ax ial, and sagittal planes. Reconstructed rotating images are created on independent workstation and r eviewed on the computer. A localization and attenuation correction CT is performed in conjunction w ith the PET scan. DLP: 8-0.52 mGycm SCAN: Initial Blood glucose: 112 mg/dL Average Mediastinum SUV: 2.37 Average Liver SUV: 2.96 FINDINGS: NECK: No abnormal uptake THORAX: There is increased uptake in the distal esophagus. This appears to be more central then trans versing the wall. This extends to the gastroesophageal junction. Gastric cardia appears normal. No me diastinal or periaortic adenopathy evident. 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 No suspicious enlarged lymphadenopathy evident. There are small lymph nodes within the mediastinum without significant uptak e. COMPARISON: None IMPRESSION: 1. Abnormal uptake within the distal inner wall of the esophagus extending to the gastroesophageal ju nction. Uptake transversing the distal esophageal wall not clearly identified. 2. No suspicious uptake elsewhere to suggest metastatic disease.
== END | disposition home or self-care (01) ==
LOC: RADPETMAIN 12:26
PROVIDERS: ATTEND Internal Medicine Hematology & Oncology
DX: C15.5 Malignant neoplasm of lower third of esophagus (principal); I10 Essential (primary) hypertension; E78.5 Hyperlipidemia, unspecified
CPT/HCPCS: 78815; A9552

== ENCOUNTER → 2024-01-30 | Outpatient (CLI) | payer BC ==
--- NOTE | 2024-01-31 14:52 | PE ---
EXAMINATION TYPE: PET CT fusion skull to thigh DATE OF EXAM: 01/30/2024 COMPARISON: No recent pertinent CT Prior PET/CT: 10/24/2023 HISTORY: Esophageal cancer TECHNIQUE: Following the intravenous administration of 12.73 mCi of F-18 FDG, whole body images are performed from the skull base to the midthigh. Images are reviewed on the computer in the coronal, a xial, and sagittal planes. Reconstructed rotating images are created on independent workstation and reviewed on the computer. A localization and attenuation correction CT is performed in conjunction with the PET scan. DLP: 270.4 mGycm SCAN: Subsequent Blood glucose: 126 mg/dL Average Mediastinum SUV: 2.6 Average Liver SUV: 2.94 FINDINGS: NECK: No suspicious uptake THORAX: No suspicious intrathoracic uptake evident. Some subtle uptake may be at the gastric pull-thr ough, example image 132, SUV 3.1. Intense suspicious uptake is not otherwise identified. ABDOMEN: No suspicious uptake PELVIS: No suspicious uptake OSSEOUS STRUCTURES: There is some mild uptake at the left sternal clavicular junction which is slight ly posterior to the sternum. This could be inflammatory change, image 89, SUV 4.81. Early metastatic lesion is not excluded. This may be a subtle change from comparison. LOCALIZATION CT: PEG tube is present. Coronary artery calcification is present. COMPARISON: Previous uptake at the distal esophagus is diminished volume and intensity over the inter barbara. IMPRESSION: 1. Improving SUV at the distal esophagus, some mild residual may remain present. 2. Mild increased uptake in the left sternal clavicular junction, inflammatory change favored althoug h metastasis is not entirely excluded. 3. No suspicious change for metastatic disease.
== END | disposition home or self-care (01) ==
LOC: RADPETMAIN 10:33
PROVIDERS: ATTEND Internal Medicine Hematology & Oncology
DX: C15.5 Malignant neoplasm of lower third of esophagus (principal)
CPT/HCPCS: 78815; A9552

== ENCOUNTER 2024-04-30 17:59 | Inpatient (IN) | payer BC ==
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
[2024-04-30] MEDS: SODIUM CHLORIDE 0.9% 500 ML 500 ML IV ONE (19:52)
[2024-04-30] MEDS: HYDROmorphone 0.5 MG/0.5 ML SYRINGE IVP STA ×2 (19:52→21:03)
[2024-04-30 20:12] LABS: Basophils % (A) 0 %; Eosinophils % (A) 0 %; HCT 43.2 % (39.0-53.0); HGB 14.2 gm/dL (13.0-17.5); Lymphocytes # (A) 0.2 k/uL (1.0-4.8); Lymphocytes % (A) 2 %; MCH 27.7 pg (25.0-35.0); MCHC 32.9 g/dL (31.0-37.0); Mean Platelet Volume 9.5; Monocytes # (A) 0.4 k/uL (0-1.0); Monocytes % (A) 3 %; Neutrophils # (A) 11.6 k/uL (1.3-7.7); Neutrophils % (A) 94 %; Platelet Count 130 k/uL (150-450); RBC 5.15 m/uL (4.30-5.90); RDW 13.7 % (11.5-15.5); WBC 12.2 k/uL (3.8-10.6)
[2024-04-30 20:23] LABS: INR 0.9 (<1.2); Partial Thromboplastin Time 24.8 sec (22.0-30.0); Prothrombin Time 10.5 sec (10.0-12.5)
--- NOTE | 2024-04-30 20:31 | CT ---
EXAMINATION TYPE: CT brain wo con DATE OF EXAM: 04/30/2024 COMPARISON: None INDICATION: Worsening confusion, hx CA. Fall from standing. DLP: 1192.2 mGycm, Automated exposure control for dose reduction was used. CONTRAST: None CT of the brain is performed utilizing 3 mm thick sections through the posterior fossa and 3 mm thick sections through the remaining calvarium. Study is performed within 24 hours of arrival to the hosp ital. No abnormal hyperdensity is present to suggest an acute intracranial hemorrhage. No mass lesion is evident. No acute infarcts are evident. Ventricles and sulci are appropriate for the patient age. Paranasal sinuses and mastoid air cells within the [id number] are clear. Septal deviation is prese nt. IMPRESSION: 1. No acute intracranial process. Follow up MRI can be performed as clinically indicated. 2. No acute posttraumatic changes [facility], Workstation: [facility], 04/30/2024 8:29 PM
[2024-04-30 20:41] LABS: Ionized Calcium 4.4 mg/dL (4.5-5.3)
[2024-04-30 20:49] LABS: ALT 24 U/L (4-49); AST 41 U/L (17-59); Acetaminophen <10.0 ug/mL; African American GFR (CKD) >90 (>60 ml/min/1.73 sqM); Albumin 3.1 g/dL (3.5-5.0); Alkaline Phosphatase 159 U/L (38-126); Anion Gap 5 mmol/L; Blood Urea Nitrogen 60 mg/dL (9-20); Carbon Dioxide 24 mmol/L (22-30); Chloride 89 mmol/L (98-107); Glucose 98 mg/dL (74-99); Magnesium 2.5 mg/dL (1.6-2.3); Non-African American GFR(CKD) 82 (>60 ml/min/1.73 sqM); Salicylate <1.0 mg/dL; Total Bilirubin 1.1 mg/dL (0.2-1.3); Total Protein 5.4 g/dL (6.3-8.2)
--- NOTE | 2024-04-30 20:52 | XR ---
EXAMINATION TYPE: XR Hip Bilateral and AP pelvis DATE OF EXAM: 04/30/2024 COMPARISON: None HISTORY: pt presents after fall from standing. pt states his pain is on his right side under his shoulder blade TECHNIQUE: AP pelvis and two-view bilateral hips FINDINGS: Femoral heads articulate with the acetabulum. Symphysis pubis and sacroiliac joints are nor mal. Nonspecific bowel gas is present. Some air-filled small bowel loops are at the upper limits of n ormal for size. No acute fractures or dislocations evident. IMPRESSION: 1. No acute osseous abnormality bilateral hips. 2. Air-filled small bowel loops. Consider ileus. Follow-up can be performed as clinically indicated. [facility], Workstation: [facility], 04/30/2024 8:49 PM
--- NOTE | 2024-04-30 20:53 | XR ---
EXAMINATION TYPE: XR lumbar spine 2 or 3V DATE OF EXAM: 04/30/2024 COMPARISON: None HISTORY: Worsening confusion history of cancer. pt presents after fall from standing. pt states his pain is on his right side under his shoulder blade TECHNIQUE: 3 view lumbar spine FINDINGS: There are 5 lumbar-type vertebral bodies. Pedicles are intact. Disc heights are preserved. Vertebral body heights are preserved. Alignment is normal. IMPRESSION: 1. Unremarkable lumbar spine [facility], Workstation: [facility], 04/30/2024 8:51 PM
--- NOTE | 2024-04-30 20:56 | XR ---
EXAMINATION TYPE: XR ribs bilat w pa chest xray DATE OF EXAM: 04/30/2024 8:39 PM COMPARISON: 09/21/2023 CLINICAL INDICATION: Male, 63 years old with history of Fall, right lower rib back pain, TECHNIQUE: 2 view bilateral rib supplemented with an AP chest. FINDINGS: The heart size is normal. The pulmonary vasculature is normal. The lungs are clear. No pne umothorax is evident. 2 views bilateral ribs were obtained. No pneumothorax is evident. No displaced fractures identified. IMPRESSION: 1. No acute fractures bilateral ribs [facility], Workstation: [facility], 04/30/2024 8:54 PM
[2024-04-30 20:57] LABS: Sodium 118 mmol/L (137-145)
[2024-04-30] MEDS ORDERED: ACETAMINOPHEN TAB 325 MG TAB PO PRN (21:52)
[2024-04-30] MEDS ORDERED: NALOXONE 0.4 MG/ML 1 ML VIAL IV PRN (21:52)
[2024-04-30] MEDS ORDERED: CALCIUM CARBONATE 500 MG CHEWABLE PO PRN (21:55)
[2024-04-30 22:00] LABS: Phosphorus 3.8 mg/dL (2.5-4.5)
[2024-04-30 22:17] LABS: T4, Free (Free Thyroxine) 0.63 ng/dL (0.78-2.19)
[2024-04-30] MEDS: MIDAZOLAM 2 MG/2 ML VIAL IV ONE (23:40)
[2024-04-30] MEDS: SODIUM CHLORIDE 0.9% 1,000 ML IV SCH (23:52)
[2024-05-01 00:42] LABS: Appearance,Urine Clear (Clear); Bilirubin,Urine Negative (Negative); Blood,Urine Negative (Negative); Color,Urine Yellow; Glucose,Urine (UA) Negative (Negative); Ketones,Urine Negative (Negative); Leukocyte Esterase,Urine Negative (Negative); Nitrite,Urine Negative (Negative); PH, Urine 5.5 (5.0-8.0); Protein,Urine Trace (Negative)
[2024-05-01] MEDS: HYDROmorphone 1 MG/ML 1 ML SYRINGE IVP PRN (01:50)
[2024-05-01] MEDS: HEPARIN SODIUM,PORCINE 5,000 UNIT/ML 1 ML VIAL SQ SCH (02:38)
[2024-05-01] MEDS: LEVOTHYROXINE IVP 100 MCG/5 ML VIAL IV STA (03:09)
[2024-05-01 05:10] LABS: Basophils % (A) 0 %; Eosinophils % (A) 0 %; HCT 46.2 % (39.0-53.0); HGB 15.4 gm/dL (13.0-17.5); Lymphocytes # (A) 0.2 k/uL (1.0-4.8); Lymphocytes % (A) 1 %; MCH 29.1 pg (25.0-35.0); MCHC 33.4 g/dL (31.0-37.0); MCV 86.9 fL (80.0-100.0); Mean Platelet Volume 8.7; Monocytes # (A) 0.4 k/uL (0-1.0); Monocytes % (A) 3 %; Neutrophils # (A) 12.3 k/uL (1.3-7.7); Neutrophils % (A) 95 %; Platelet Count 121 k/uL (150-450); RBC 5.31 m/uL (4.30-5.90); RDW 13.8 % (11.5-15.5); WBC 12.9 k/uL (3.8-10.6)
[2024-05-01 05:13] LABS: African American GFR (CKD) >90 (>60 ml/min/1.73 sqM); Anion Gap 5 mmol/L; Blood Urea Nitrogen 59 mg/dL (9-20); Calcium 7.9 mg/dL (8.4-10.2); Carbon Dioxide 23 mmol/L (22-30); Chloride 92 mmol/L (98-107); Glucose 99 mg/dL (74-99); Non-African American GFR(CKD) >90 (>60 ml/min/1.73 sqM); Potassium 4.9 mmol/L (3.5-5.1); Sodium 120 mmol/L (137-145)
[2024-05-01] MEDS: ALPRAZolam 0.25 MG TAB PO PRN (07:41)
[2024-05-01] MEDS: PANTOPRAZOLE 40 MG TABLET PO SCH (09:45)
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
[2024-05-01] MEDS: HYDROmorphone 0.5 MG/0.5 ML SYRINGE IVP PRN (13:17)
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
[2024-05-01] MEDS: ALBUMIN HUMAN 25% 50 ML in EMPTY BAG 1 BAG IVPB SCH (15:23)
[2024-05-01] MEDS: HYDROmorphone 2 MG/ML 1 ML SYRINGE IVP PRN (17:52)
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
[2024-05-01] MEDS: FAMOTIDINE 20 MG TAB PO SCH (20:06)
[2024-05-01] MEDS: SODIUM CHLORIDE TAB 1 GM TAB PO SCH (20:55)
[2024-05-02] MEDS: MAG HYDROX/AL HYDROX/SIMETH 30 ML CUP PO PRN (01:52)
[2024-05-02] MEDS: BISMUTH SUBSALICYLATE 4,192 MG/240 ML BOTTLE PO PRN (05:51)
[2024-05-02 07:23] LABS: Basophils % (A) 0 %; Eosinophils % (A) 0 %; HCT 41.5 % (39.0-53.0); HGB 13.5 gm/dL (13.0-17.5); Lymphocytes # (A) 0.2 k/uL (1.0-4.8); Lymphocytes % (A) 1 %; MCH 27.8 pg (25.0-35.0); MCHC 32.4 g/dL (31.0-37.0); MCV 85.8 fL (80.0-100.0); Mean Platelet Volume 9.1; Monocytes # (A) 0.4 k/uL (0-1.0); Monocytes % (A) 3 %; Neutrophils % (A) 95 %; Platelet Count 147 k/uL (150-450); RBC 4.83 m/uL (4.30-5.90); RDW 14.6 % (11.5-15.5); WBC 12.6 k/uL (3.8-10.6)
[2024-05-02 08:03] LABS: ALT 24 U/L (4-49); AST 42 U/L (17-59); African American GFR (CKD) >90 (>60 ml/min/1.73 sqM); Albumin 3.5 g/dL (3.5-5.0); Alkaline Phosphatase 126 U/L (38-126); Anion Gap 10 mmol/L; Blood Urea Nitrogen 54 mg/dL (9-20); Calcium 8.1 mg/dL (8.4-10.2); Carbon Dioxide 23 mmol/L (22-30); Chloride 93 mmol/L (98-107); Glucose 71 mg/dL (74-99); Non-African American GFR(CKD) 90 (>60 ml/min/1.73 sqM); Potassium 5.4 mmol/L (3.5-5.1); Sodium 126 mmol/L (137-145); Total Bilirubin 1.5 mg/dL (0.2-1.3); Total Protein 5.8 g/dL (6.3-8.2)
[2024-05-02] MEDS ORDERED: bisacodyL 10 MG SUPP RECTAL STA (10:22)
[2024-05-02 11:00] VITALS: RESP 18; TEMP 96.8
--- NOTE | 2024-05-02 12:00 | P.PN ---
Subjective Progress Note Date: 05/02/24 Patient seen in follow-up for hyponatremia. Patient is awake, Cachectic Examination of the heart S1 and S2 Examination the lungs bilateral breath sounds are heard Abdomen is soft Examination lower extremity shows no evidence of edema Objective - Vital Signs Vital signs: Vital Signs Temp 97.9 F 05/01/24 20:00 Pulse 89 05/02/24 04:00 Resp 16 05/02/24 04:00 BP 136/86 05/02/24 04:00 Pulse Ox 92 L 05/02/24 04:00 FiO2 Intake & Output 05/01/24 05/02/24 05/02/24 18:59 06:59 18:59 Weight 56.699 kg 55.1 kg Other: Voiding Method Indwelling Catheter - Labs CBC & Chem 7: 05/02/24 06:01 05/02/24 06:01 Labs: Abnormal Lab Results - Last 24 Hours (Table) 04/30/24 05/01/24 05/01/24 Range/Units 23:15 04:10 10:34 WBC (3.8-10.6) k/uL Plt Count (150-450) k/uL Neutrophils # (1.3-7.7) k/uL Lymphocytes # (1.0-4.8) k/uL Sodium 120 L (137-145) mmol/L Potassium (3.5-5.1) mmol/L Chloride (98-107) mmol/L BUN (9-20) mg/dL Glucose (74-99) mg/dL Osmolality 270 L (275-295) mOsm/kg Calcium (8.4-10.2) mg/dL Total Bilirubin (0.2-1.3) mg/dL Total Protein (6.3-8.2) g/dL Ur Random Sodium <20 L (40-220) mmol/L 05/01/24 05/02/24 05/02/24 Range/Units 17:46 06:01 06:01 WBC 12.6 H (3.8-10.6) k/uL Plt Count 147 L (150-450) k/uL Neutrophils # 12.0 H (1.3-7.7) k/uL Lymphocytes # 0.2 L (1.0-4.8) k/uL Sodium 122 L 126 L (137-145) mmol/L Potassium 5.4 H (3.5-5.1) mmol/L Chloride 93 L (98-107) mmol/L BUN 54 H (9-20) mg/dL Glucose 71 L (74-99) mg/dL Osmolality (275-295) mOsm/kg Calcium 8.1 L (8.4-10.2) mg/dL Total Bilirubin 1.5 H (0.2-1.3) mg/dL Total Protein 5.8 L (6.3-8.2) g/dL Ur Random Sodium (40-220) mmol/L Assessment and Plan Assessment: 1. Hyponatremia, hypovolemic and improving with normal saline. Urine sodium <20 consistent with hypovolemia. 2. Metastatic esophageal cancer 3. Hypovolemia Plan: Continue with normal saline Sodium improved to 126 this morning. Pain control
[2024-05-02] MEDS: NICOTINE 21MG/24HR PATCH TRANSDERM SCH (12:47)
--- NOTE | 2024-05-02 13:23 | P.PN ---
Subjective Progress Note Date: 05/02/24 patient is a 63-year-old gentleman with past medical history significant for metastatic esophageal cancer, hypertension, hyperlipidemia who presented to the ER because of generalized weakness and fall. Patient was all right this morning when while getting up from his couch, patient lost his balance and fell backwards on the couch. Following that patient started having back pain. There was no loss of consciousness. There was no obvious trauma to the head or the back. Family did notice that the patient was confused for the last few days. Patient normally gets paracentesis every week. There was no complaint of fever or chills. Patient continues to have poor appetite and has a PEG tube from ich he gets nutrition. There is no complaint of chest pain or shortness of breath. Patient has been following up with his oncologist and is aware of esophageal cancer with spread to the peritoneum and spine. Patient family had been discussing with oncology regarding further goals of care Initial lab work done in the ER showed WBC 12.2, hemoglobin 14.2, platelet count 130, sodium 118, potassium 5, BUN 60, creatinine 0.99, calcium 8, phosphorous 3.8, alk phos 159, TSH 7.740, free T4.63 EKG done in the ER showed heart rate of 83, no ST segment elevation or depression seen, no T-wave inversions seen. X-ray hip and pelvis done showed no acute osseous abnormality of bilateral hips Chest x-ray done in the ER, no fracture of ribs seen CT head done showed no acute intracranial process X-ray lumbar spine done showed unremarkable lumbar spine Patient admitted to internal medicine service 05/02. Patient seen and examined. Patient TSH was elevated, started on Synthroid. Had a long discussion with patient's family regarding goals of care, family deciding towards hospice. Patient complaining of body pains. Vital signs stable REVIEW OF SYSTEMS: CONSTITUTIONAL: No fever, no malaise,. CARDIOVASCULAR: No chest pain, no palpitations, no syncope. PULMONARY: No shortness of breath, no cough, GASTROINTESTINAL: Complain of loss of appetite. Complaining of abdominal pain NEUROLOGICAL: No headaches, no weakness, PHYSICAL EXAMINATION: GENERAL: The patient is alert, chronically ill looking HEENT: Pupils are round and equally reacting to light. EOMI. No scleral icterus. No conjunctival pallor. Normocephalic, atraumatic. No pharyngeal erythema. No thyromegaly. CARDIOVASCULAR: S1 and S2 present. No murmurs, rubs, or gallops. PULMONARY: Chest is clear to auscultation, no wheezing or crackles. ABDOMEN: Soft, nontender, PEG tube seen MUSCULOSKELETAL: No joint swelling or deformity. EXTREMITIES: No cyanosis, clubbing, or pedal edema. NEUROLOGICAL: Gross neurological examination did not reveal any focal deficits. SKIN: No rashes. Assessment and plan Debility Hyponatremia Generalized weakness Metastatic esophageal cancer Hypothyroidism Severe malnutrition Monitor vital signs Monitor CBC Monitor CMP Strict I's and O's, daily weights Continue pain management Continue IV fluids Continue tube feeding Continue Synthroid Nephro following Hematology oncology following Hospice consulted, patient agreeable to sign onto hospice Labs and medication were reviewed.. Continue same treatment. Continue with symptomatic treatment. Resume home medication. Monitor labs and vitals. DVT and GI prophylaxis. Further recommendations as per clinical course of the patient Dictation was produced using Picur[employer] dictation software. please excuse any grammatical, word or spelling errors. Objective - Vital Signs Vital signs: Vital Signs Temp 97.9 F 05/01/24 20:00 Pulse 89 05/02/24 04:00 Resp 16 05/02/24 04:00 BP 136/86 05/02/24 04:00 Pulse Ox 92 L 05/02/24 04:00 FiO2 Intake & Output 05/01/24 05/02/24 05/02/24 18:59 06:59 18:59 Weight 56.699 kg 55.1 kg Other: Voiding Method Indwelling Catheter - Labs CBC & Chem 7: 05/02/24 06:01 05/02/24 06:01 Labs: Abnormal Lab Results - Last 24 Hours (Table) 05/01/24 05/01/24 05/01/24 Range/Units 04:10 10:34 17:46 WBC (3.8-10.6) k/uL Plt Count (150-450) k/uL Neutrophils # (1.3-7.7) k/uL Lymphocytes # (1.0-4.8) k/uL Sodium 120 L 122 L (137-145) mmol/L Potassium (3.5-5.1) mmol/L Chloride (98-107) mmol/L BUN (9-20) mg/dL Glucose (74-99) mg/dL Osmolality 270 L (275-295) mOsm/kg Calcium (8.4-10.2) mg/dL Total Bilirubin (0.2-1.3) mg/dL Total Protein (6.3-8.2) g/dL 05/02/24 05/02/24 Range/Units 06:01 06:01 WBC 12.6 H (3.8-10.6) k/uL Plt Count 147 L (150-450) k/uL Neutrophils # 12.0 H (1.3-7.7) k/uL Lymphocytes # 0.2 L (1.0-4.8) k/uL Sodium 126 L (137-145) mmol/L Potassium 5.4 H (3.5-5.1) mmol/L Chloride 93 L (98-107) mmol/L BUN 54 H (9-20) mg/dL Glucose 71 L (74-99) mg/dL Osmolality (275-295) mOsm/kg Calcium 8.1 L (8.4-10.2) mg/dL Total Bilirubin 1.5 H (0.2-1.3) mg/dL Total Protein 5.8 L (6.3-8.2) g/dL
[2024-05-02 15:46] VITALS: BMI 16.5
[2024-05-02 15:50] VITALS: PULSE 96
[2024-05-02 15:51] VITALS: BP 115/82
[2024-05-03] MEDS ORDERED: LEVOTHYROXINE 25 MCG TAB PO SCH (06:30)
--- NOTE | 2024-05-03 08:12 | P.DS ---
Providers Date of admission: 04/30/24 21:52 Expected date of discharge: 05/02/24 Attending physician: Sandra Morales Consults: 04/30/24 21:52 Consult Physician Routine Consulting Provider: Eugenia Virgen Consult Reason/Comments: Hyponatremia Do you want consulting provider notified?: Yes, Notify in am 05/01/24 10:04 Consult Physician Routine Consulting Provider: Krishan Coon Consult Reason/Comments: Stage IV esophageal cancer Do you want consulting provider notified?: Yes Primary care physician: Gifty Nelson Hospital Course: Discharge diagnoses; Debility Hyponatremia Generalized weakness Metastatic esophageal cancer Hypothyroidism Severe malnutrition Hospital course; patient is a 63-year-old gentleman with past medical history significant for metastatic esophageal cancer, hypertension, hyperlipidemia who presented to the ER because of generalized weakness and fall. Patient was all right this morning when while getting up from his couch, patient lost his balance and fell backwards on the couch. Following that patient started having back pain. There was no loss of consciousness. There was no obvious trauma to the head or the back. Family did notice that the patient was confused for the last few days. Patient normally gets paracentesis every week. There was no complaint of fever or chills. Patient continues to have poor appetite and has a PEG tube from which he gets nutrition. There is no complaint of chest pain or shortness of breath. Patient has been following up with his oncologist and is aware of esophageal cancer with spread to the peritoneum and spine. Patient family had been discussing with oncology regarding further goals of care Initial lab work done in the ER showed WBC 12.2, hemoglobin 14.2, platelet count 130, sodium 118, potassium 5, BUN 60, creatinine 0.99, calcium 8, phosphorous 3.8, alk phos 159, TSH 7.740, free T4.63 EKG done in the ER showed heart rate of 83, no ST segment elevation or depression seen, no T-wave inversions seen. X-ray hip and pelvis done showed no acute osseous abnormality of bilateral hips Chest x-ray done in the ER, no fracture of ribs seen CT head done showed no acute intracranial process X-ray lumbar spine done showed unremarkable lumbar spine Patient admitted to internal medicine service 05/02. Patient seen and examined. Patient TSH was elevated, started on Synthroid. Had a long discussion with patient's family regarding goals of care, family deciding towards hospice. Patient complaining of body pains. Hospice evaluated the patient, discussed with patient's family, patient signed up for inpatient hospice. PHYSICAL EXAMINATION: GENERAL: The patient is alert, chronically ill looking HEENT: Pupils are round and equally reacting to light. EOMI. No scleral icterus. No conjunctival pallor. Normocephalic, atraumatic. No pharyngeal erythema. No thyromegaly. CARDIOVASCULAR: S1 and S2 present. No murmurs, rubs, or gallops. PULMONARY: Chest is clear to auscultation, no wheezing or crackles. ABDOMEN: Soft, nontender, PEG tube seen MUSCULOSKELETAL: No joint swelling or deformity. EXTREMITIES: No cyanosis, clubbing, or pedal edema. NEUROLOGICAL: Gross neurological examination did not reveal any focal deficits. SKIN: No rashes. Dictation was produced using Slidely dictation software. please excuse any grammatical, word or spelling errors. Patient Condition at Discharge: Poor Plan - Discharge Summary Discharge Rx Participant: No New Discharge Prescriptions: No Action HYDROmorphone [Dilaudid] 2 mg PO DAILY PRN PRN Reason: Breakthrough Pain HYDROcodone/APAP 10-325MG [[place] 10-325] 1 tab PO Q4HR Discharge Medication List HYDROcodone/APAP 10-325MG [[place] 10-325] 1 tab PO Q4HR 05/01/24 [History] HYDROmorphone [Dilaudid] 2 mg PO DAILY PRN 05/01/24 [History] Follow up Appointment(s)/Referral(s): Gifty Nelson DO [Primary Care Provider] - 1-2 days Discharge Disposition: DISCH TO [facility]
== END 2024-05-02 16:26 | disposition hospice, inpatient (51) | DRG 640 ==
LOC: EC 17:59 → 3SCARD 21:52
PROVIDERS: ADMIT Hospitalist; ATTEND Hospitalist
DX: E87.1 Hypo-osmolality and hyponatremia (principal); E43 Unspecified severe protein-calorie malnutrition; Z68.1 Body mass index [BMI] 19.9 or less, adult; C78.6 Secondary malignant neoplasm of retroperitoneum and peritoneum; C79.51 Secondary malignant neoplasm of bone; C15.5 Malignant neoplasm of lower third of esophagus; R64 Cachexia; E03.9 Hypothyroidism, unspecified; R53.81 Other malaise; E78.5 Hyperlipidemia, unspecified; F17.200 Nicotine dependence, unspecified, uncomplicated; R62.7 Adult failure to thrive; I10 Essential (primary) hypertension; E86.1 Hypovolemia; W01.0XXA Fall on same level from slipping, tripping and stumbling without subsequent striking against object, initial encounter; Z93.1 Gastrostomy status; I25.2 Old myocardial infarction; Z79.82 Long term (current) use of aspirin; Z92.3 Personal history of irradiation; Z79.899 Other long term (current) drug therapy
CPT/HCPCS: 36415; 51702; 70450; 71111; 72100; 73521; 80048; 80053; 80143; 80179; 81003; 82140; 82330; 83735; 83930; 83935; 84100; 84295; 84300; 84439; 84443; 84484; 85025; 85610; 85730; 93005; 96361; 96365; 96366; 96375; 96376; 99291

== ENCOUNTER 2024-05-02 14:22 | Inpatient (IN) | payer BC, MEDICAID ==
[2024-05-02] MEDS ORDERED: DRY MOUTH SPRAY 44.3 SPRAY/44.3 ML SPRAY MUCOUS MEM PRN (14:38)
[2024-05-02] MEDS ORDERED: MORPHINE SULFATE 2 MG/ML SYRINGE IV PRN (14:38)
[2024-05-02] MEDS ORDERED: GLYCOPYRROLATE 0.2 MG/ML 2 ML VIAL IVP PRN (14:38)
[2024-05-02] MEDS ORDERED: ONDANSETRON 4 MG/2 ML VIAL IVP PRN (14:38)
[2024-05-02] MEDS ORDERED: ATROPINE OPHTH SOLN 1% 5ML BTL SUBLINGUAL PRN (14:38)
[2024-05-02] MEDS ORDERED: ACETAMINOPHEN SUPPOSITORY 650 MG SUPP RECTAL PRN (14:38)
[2024-05-02] MEDS: MORPHINE SULFATE (100 MG/2 ML) 100 MG in SODIUM CHLORIDE 0.9% 100 ML IV SCH (17:02)
[2024-05-02] MEDS: LORazepam 2 MG/ML INJ IV PRN (17:09)
[2024-05-02] MEDS: HALOPERIDOL LACTATE 5 MG/ML 1 ML VIAL IM PRN (22:24)
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
[2024-05-04 11:34] VITALS: BMI 17.0
[2024-05-04] MEDS: SCOPOLAMINE 1 MG/72 HR PATCH TRANSDERM SCH (16:04)
--- NOTE | 2024-05-05 06:19 | P.PN ---
Subjective Progress Note Date: 05/04/24 History of present illness;patient is a 63-year-old gentleman with past medical history significant for metastatic esophageal cancer, hypertension, hyperlipidemia who presented to the ER because of generalized weakness and fall. Patient was all right this morning when while getting up from his couch, manav gardiner lost his balance and fell backwards on the couch. Following that patient started having back pain. There was no loss of consciousness. There was no obvious trauma to the head or the back. Family did notice that the patient was confused for the last few days. Patient normally gets paracentesis every week. There was no complaint of fever or chills. Patient continues to have poor appetite and has a PEG tube from which he gets nutrition. There is no complaint of chest pain or shortness of breath. Patient has been following up with his oncologist and is aware of esophageal cancer with spread to the peritoneum and spine. Patient family had been discussing with oncology regarding further goals of care Initial lab work done in the ER showed WBC 12.2, hemoglobin 14.2, platelet count 130, sodium 118, potassium 5, BUN 60, creatinine 0.99, calcium 8, phosphorous 3.8, alk phos 159, TSH 7.740, free T4.63 EKG done in the ER showed heart rate of 83, no ST segment elevation or depressi on seen, no T-wave inversions seen. X-ray hip and pelvis done showed no acute osseous abnormality of bilateral hips Chest x-ray done in the ER, no fracture of ribs seen CT head done showed no acute intracranial process X-ray lumbar spine done showed unremarkable lumbar spine Patient admitted to internal medicine service. Hematology oncology and nephrology were consulted. Patient seen by hematology oncology, patient poor prognosis was explained to patient family. Patient was signed up for hospice and was transferred to [facility]. 05/04/2024 Patient is seen in follow-up with family present maintained on morphine drip with [facility] following [facility] criteria. Will continue to follow along and provide supportive comfort measures. REVIEW OF SYSTEMS: Review of system cannot be obtained as patient is lethargic and maintained on morphine drip PHYSICAL EXAMINATION: GENERAL: The patient is lethargic, ill looking, thin, emaciated HEENT: Pupils are round and equally reacting to light. EOMI. No scleral icterus. No conjunctival pallor. Normocephalic, atraumatic. No pharyngeal erythema. No thyromegaly. CARDIOVASCULAR: S1 and S2 present. No murmurs, rubs, or gallops. PULMONARY: Coarse breath sound bilaterally, no wheezing or crackles. ABDOMEN: Soft, nontender, PEG tube seen MUSCULOSKELETAL: No joint swelling or deformity. EXTREMITIES: No cyanosis, clubbing, or pedal edema. NEUROLOGICAL: Lethargic SKIN: No rashes. Assessment: Debility Hyponatremia Generalized weakness Metastatic esophageal cancer Hypothyroidism Severe malnutrition No code Plan: Patient currently GIP with [facility] following on comfort measures continued on morphine drip at 7 mL/h. Titrate accordingly. Will continue to follow with [facility] Overall poor prognosis The impression and plan of care has been dictated by Fabienne Mcclure, Nurse Practitioner as directed. Dr. Alvin MD I have performed a history and examination and MDM of this patient, discussed the same with the dictator, and agree with the dictator's assessment and plan as written ,documented as a scribe. Based on total visit time, I have performed more than 50% of the visit. Objective - Vital Signs Vital signs: Vital Signs Temp Pulse 84 05/03/24 14:00 Resp 10 L 05/04/24 08:16 BP Pulse Ox FiO2 Intake & Output 05/03/24 05/04/24 05/04/24 18:59 06:59 18:59 Intake Total 48.994 94.01 0 Balance 48.994 94.01 0 Weight 57 kg Intake: Intake, IV Titration 48.994 94.01 Amount Morphine Sulfate (100 mg/ 48.994 94.01 2 ml) 100 mg In Sodium Chloride 0.9% 100 ml @ 1 MG/HR 1.02 mls/hr IV . Q24H [facility] Rx#:[id number] Oral 0 Other: # Voids 1 1
--- NOTE | 2024-05-05 09:42 | P.PN ---
Subjective Progress Note Date: 05/05/24 History of present illness;patient is a 63-year-old gentleman with past medical history significant for metastatic esophageal cancer, hypertension, hyperlipidemia who presented to the ER because of generalized weakness and fall. Patient was all right this morning when while getting up from his couch, manav gardiner lost his balance and fell backwards on the couch. Following that patient started having back pain. There was no loss of consciousness. There was no obvious trauma to the head or the back. Family did notice that the patient was confused for the last few days. Patient normally gets paracentesis every week. There was no complaint of fever or chills. Patient continues to have poor appetite and has a PEG tube from which he gets nutrition. There is no complaint of chest pain or shortness of breath. Patient has been following up with his oncologist and is aware of esophageal cancer with spread to the peritoneum and spine. Patient family had been discussing with oncology regarding further goals of care Initial lab work done in the ER showed WBC 12.2, hemoglobin 14.2, platelet count 130, sodium 118, potassium 5, BUN 60, creatinine 0.99, calcium 8, phosphorous 3.8, alk phos 159, TSH 7.740, free T4.63 EKG done in the ER showed heart rate of 83, no ST segment elevation or depressi on seen, no T-wave inversions seen. X-ray hip and pelvis done showed no acute osseous abnormality of bilateral hips Chest x-ray done in the ER, no fracture of ribs seen CT head done showed no acute intracranial process X-ray lumbar spine done showed unremarkable lumbar spine Patient admitted to internal medicine service. Hematology oncology and nephrology were consulted. Patient seen by hematology oncology, patient poor prognosis was explained to patient family. Patient was signed up for hospice and was transferred to [facility]. 05/04/2024 Patient is seen in follow-up with family present maintained on morphine drip with [facility] following [facility] criteria. Will continue to follow along and provide supportive comfort measures. 05/06/2024 Patient is seen in follow-up continues to be on a morphine drip currently at 8 mL/h following with [facility] services. Patient appears comfortable, respirations are 6 to 8/min REVIEW OF SYSTEMS: Review of system cannot be obtained as patient is lethargic and maintained on morphine drip PHYSICAL EXAMINATION: GENERAL: The patient is lethargic, ill looking, thin, emaciated HEENT: Pupils are round and equally reacting to light. EOMI. No scleral icterus. No conjunctival pallor. Normocephalic, atraumatic. No pharyngeal erythema. No thyromegaly. CARDIOVASCULAR: S1 and S2 present. No murmurs, rubs, or gallops. PULMONARY: Coarse breath sound bilaterally, no wheezing or crackles. ABDOMEN: Soft, nontender, PEG tube seen MUSCULOSKELETAL: No joint swelling or deformity. EXTREMITIES: No cyanosis, clubbing, or pedal edema. NEUROLOGICAL: Lethargic SKIN: No rashes. Assessment: Debility Hyponatremia Generalized weakness Metastatic esophageal cancer Hypothyroidism Severe malnutrition No code Plan: Patient currently GIP with [facility] following on comfort measures continued on morphine drip at 8 mL/h. Titrate accordingly. Will continue to follow with [facility] Overall poor prognosis The impression and plan of care has been dictated by Fabienne Mcclure, Nurse Practitioner as directed. Dr. Alvin MD I have performed a history and examination and MDM of this patient, discussed the same with the dictator, and agree with the dictator's assessment and plan as written ,documented as a scribe. Based on total visit time, I have performed more than 50% of the visit. Objective - Vital Signs Vital signs: Vital Signs Temp Pulse 84 05/03/24 14:00 Resp 7 L 05/05/24 07:35 BP Pulse Ox FiO2 Intake & Output 05/04/24 05/05/24 05/05/24 18:59 06:59 18:59 Intake Total 89.131 108.766 Balance 89.131 108.766 Weight 57 kg 57 kg Intake: Intake, IV Titration 89.131 108.766 Amount Morphine Sulfate (100 mg/ 89.131 108.766 2 ml) 100 mg In Sodium Chloride 0.9% 100 ml @ 1 MG/HR 1.02 mls/hr IV . Q24H [facility] Rx#:[id number] Oral 0 Other: # Voids 0
[2024-05-06 04:59] VITALS: PULSE 0; RESP 0
--- NOTE | 2024-05-07 09:35 | P.DS ---
Providers Date of admission: 05/02/24 16:27 Expected date of discharge: 05/06/24 Attending physician: Sandra Morales Primary care physician: Gifty Nelson Hospital Course: Preliminary cause of Metastatic esophageal cancer Final diagnosis Debility Hyponatremia Generalized weakness Metastatic esophageal cancer Hypothyroidism Severe malnutrition No code discharge disposition Patient has . According to nursing documentation, time of was 08 22 on 05/06/2024. Patient was continued on [facility] hospice services comfort measures. Total time taken greater than 35 minutes Hospital course This is a 63-year-old male who was recently admitted with progressive weakness with hyponatremia and debility has been having clinical decline per family due to the metastatic esophageal cancer. Family had met with hospice and agreeable to hospice and meeting inpatient criteria patient was started on morphine drip. Comfort measures provided and patient ultimately at 08 22 on 05/06/2024. The impression and plan of care has been dictated by Fabienne Mcclure Nurse Practitioner as directed. Dr. Alvin MD I have performed a history and examination and MDM of this patient, discussed the same with the dictator, and agree with the dictator's assessment and plan as written ,documented as a scribe. Based on total visit time, I have performed more than 50% of the visit. Patient Condition at Discharge: Poor Plan - Discharge Summary New Discharge Prescriptions: No Action HYDROmorphone [Dilaudid] 2 mg PO DAILY PRN PRN Reason: Breakthrough Pain HYDROcodone/APAP 10-325MG [[place] 10-325] 1 tab PO Q4HR Discharge Medication List HYDROcodone/APAP 10-325MG [[place] 10-325] 1 tab PO Q4HR 05/01/24 [History] HYDROmorphone [Dilaudid] 2 mg PO DAILY PRN 05/01/24 [History] Discharge Disposition: - Preliminary Cause of Preliminary Cause of : Metastatic esophageal cancer
== END 2024-05-06 05:08 | disposition expired | DRG 951 ==
LOC: 3NCARDOBS 15:00 → UNDOADMIN 15:00 → 3SCARD 16:27
PROVIDERS: ADMIT Hospitalist; ATTEND Hospitalist
DX: Z51.5 Encounter for palliative care (principal); E43 Unspecified severe protein-calorie malnutrition; C15.9 Malignant neoplasm of esophagus, unspecified; C78.6 Secondary malignant neoplasm of retroperitoneum and peritoneum; E87.1 Hypo-osmolality and hyponatremia; C79.51 Secondary malignant neoplasm of bone; Z68.1 Body mass index [BMI] 19.9 or less, adult; Z66 Do not resuscitate; Z93.1 Gastrostomy status; E78.5 Hyperlipidemia, unspecified; I10 Essential (primary) hypertension; E03.9 Hypothyroidism, unspecified; F17.210 Nicotine dependence, cigarettes, uncomplicated; I25.2 Old myocardial infarction